=== PATIENT | female | born 1950 | race Two or more races ===

== ENCOUNTER 2024-05-24 20:49 | Emergency (ER) | payer MEDICARE, MEDICAID ==
[~2024-05-24] VITALS: Ht 167.6 cm; Wt 78.6 kg
--- NOTE | 2024-05-24 22:22 | DVH ---
CLINICAL INDICATION: PAIN S/P LEFT 5TH DIGIT SURG TECHNIQUE: 3 radiographic views of the left hand were obtained. Comparison: None FINDINGS/IMPRESSION: Status post open reduction internal fixation of the fracture of the proximal phalanx of the left 5th digit. The visualized joint space is well maintained. The alignment is anatomical. There is no radiopaque foreign body.
[2024-05-24 22:37] VITALS: BP 150/70; PULSE 77; RESP 20; TEMP 98.4; O2SAT 94
[2024-05-24] MEDS ORDERED: oxyCODONE HCL 5MG TAB PO PRN (23:00)
[2024-05-24] MEDS: oxyCODONE HCL 5MG TAB PO ONE (23:22)
--- NOTE | 2024-05-24 23:35 | ED.PDOC ---
Back pain HPI HPI Comments PRESENTS TO ED FOR LEFT HAND AND WRIST PAIN S/P LEFT FIFTH DIGIT SURGERY AT [facility] 05/19/24. HAND AND WRIST FEELS TIGHT. DENIES NUMBNESS, WEAKNESS OR KNOWN INJURY Chief Complaint: Upper Extremity Time Seen by MD: 21:00 Reviewed Notes: Nurses Notes, Medications, Allergies Allergies: Coded Allergies: Acetaminophen (Verified Allergy, Unknown, 05/24/24) Aspirin (Verified Allergy, Unknown, 05/24/24) Codeine (Verified Allergy, Unknown, 05/24/24) Hydrocodone (Verified Allergy, Unknown, 05/24/24) Ibuprofen (Verified Allergy, Unknown, 05/24/24) Naproxen (Verified Allergy, Unknown, 05/24/24) Sulfamethoxazole w/Trimethoprim (Verified Allergy, Unknown, 05/24/24) Uncoded Allergies: CIPROFIBRATE (Allergy, Unknown, 05/24/24) Information Source: Patient Mode of Arrival: Ambulatory Past Medical History PAST MEDICAL HISTORY: Denies Surgical History: Denies all surgeries PLASTER MIXER History: No Pertinent PLASTER MIXER History Family History Family History: Reviewed,noncontributory to illness Social History Smoker: Non-Smoker Alcohol: Denies ETOH Use Drugs: Denies Drug Use Constitutional: denies: chills, diaphoresis, fatigue, fever, malaise, sweats, weakness, others EENTM: denies: blurred vision, double vision, ear bleeding, ear discharge, ear drainage, ear pain, ear ringing, eye pain, eye redness, hearing loss, mouth pain, mouth swelling, nasal discharge, nose bleeding, nose congestion, nose pain, photophobia, tearing, throat pain, throat swelling, voice changes, others Respiratory: denies: cough, hemoptysis, orthopnea, SOB at rest, shortness of breath, SOB with excertion, stridor, wheezing, others Cardiovascular: denies: chest pain, dizzy spells, diaphoresis, Dyspnea on exertion, edema, irregular heart beat, left arm pain, lightheadedness, palpitations, PND, syncope, others Gastrointestinal: denies: abdomen distended, abdominal pain, blood streaked bowels, constipated, diarrhea, dysphagia, difficulty swallowing, hematemesis, melena, nausea, poor appetite, poor fluid intake, rectal bleeding, rectal pain, vomiting, others Genitourinary: denies: abnormal vagina bleeding, burning, dyspareunia, dysuria, flank pain, frequency, hematuria, incontinence, pain, , vagina discharge, urgency, others Neurological: denies: dizziness, fainting, headache, left sided numbness, left sided weakness, numbness, paresthesia, pre-existing deficit, right sided nu mbness, right sided weakness, seizure, speech problems, tingling, tremors, weakness, others Musculoskeletal: reports: others (LEFT THUMB PAIN); denies: back pain, gout, joint pain, joint swelling, muscle pain, muscle stiffness, neck pain Integumetry: denies: bruises, change in color, change in hair/nails, dryness, laceration, lesions, lumps, rash, wounds, others Allergic/Immunocompromised: denies: Difficulty Healing, Frequent Infections, Hives, Itching, others Hematologic/Lymphatic: denies: anemia, blood clots, easy bleeding, easy bruising, swollen glands, others Endocrine: denies: excessive hunger, excessive sweating, excessive thirst, excessive urination, flushing, intolerance to cold, intolerance to heat, unexplained weight gain, unexplained weight loss, others Psychiatric: denies: anxiety, bipolar disorder, depression, hopeless, panic disorder, schizophrenia, sleepless, suicidal, others Physical Exam General Appearance: No Apparent Distress, Normal HEENT: Pharynx Normal Neck: Full Range of Motion, Non-Tender Respiratory: Lungs Clear, No Respiratory Distress, Normal Breath Sounds Cardiovascular: No Murmur, Normal Peripheral Pulses, Regular Rate/Rhythm Breast Exam: Deferred Gastrointestinal: Non Tender, Soft Genitalia: Deferred Pelvic: Deferred Rectal: Deferred Extremities: Normal capillary refill, Normal inspection, Normal range of motion, Non-tender, No pedal edema Musculoskeletal : Location: Left Extremity Location: Hand (RETURN FIXATION DEVICE INTACT NO NOTED DRAINAGE OR SWELLING WITHOUT ERYTHEMA. LEFT THUMB TENDERNESS ON PALPATION TRACE EDEMA AND STRENGTH SENSORY MOTION INTACT) Apperance: Normal Neurologic: Alert, injection molding machine operator II-XII nml as Tested, No Motor Deficits, Normal Affect, Normal Mood, No Sensory Deficits Cerebellar Function: Normal Reflexes: Normal Skin: Dry, Normal Color, Warm Lymphatic: No Adenopathy Was a procedure done? Was a procedure done?: No Back Pain Differential Dx Differential Diagnosis: Fracture, Musculoskeletal Pain X-Ray, Labs, Meds, VS Vital Signs Date Time Temp Pulse Resp B/P (MAP) Pulse Ox O2 Delivery O2 Flow Rate FiO2 05/24/24 22:37 98.4 77 20 150/70 (96) 94 98.4 05/24/24 22:37 77 20 94 Room Air 05/24/24 21:00 98.4 70 16 132/83 (99) 95 Current Medications Medications (Trade) Dose Ordered Sig/Cara Route Start Time Stop Time Status Last Admin Oxycodone HCl 10 mg ONCE ONCE PO 05/24/24 23:15 05/24/24 23:18 DC 05/24/24 23:22 X-Ray, Labs, Meds, VS Comment X-RAY OF LEFT HAND AND THUMB SHOWS HARDWARE POST SURGICAL IN PLACE WITH NO NOTED DISLOCATIONS, OSSEOUS LESIONS OR FRACTURES. PATIENT IS SPLINT REMOVED RE DONE PATIENT TOLERATED WELL POSITIVE CIRCULATION SENSORY AND MOTION AFTER. LIKELY SECONDARY TO TIGHTNESS OF THE LAST SPLINT. GIVEN 10 MG OXYCODONE REPORTS IMPROVEMENT IN PAIN AND FUNCTION REQUESTING DISC HARGE AT THIS TIME. PATIENT STATES HAS A PRESCRIPTION AT HOME 5 MG 1-2 TABS NEEDED EVERY 6 HOURS. ADVISED TO CONTINUE THE PRESCRIPTION PRESCRIBED SIDE EFFECTS DISCUSSED NO ALCOHOL OR DRIVING WHILE ON MEDICATION. ADVISED TO CONTINUE TAKE A STOOL SOFTENER, INCREASE HER DAILY FIBER TO AVOID CONSTIPATION FOLLOW UP WITH THE SURGEON AND PCP IN 1-2 DAYS ER RETURN PRECAUTIONS GIVEN PATIENT INDICATES UNDERSTANDING. Time of 1ST Reevaluation: 23:35 Reevaluation 1ST: Improved Patient Education/Counseling: Diagnosis, Treatment, Prognosis, Need For Follow Up Family Education/Counseling: No Family Present Departure 1 Departure Time of Disposition: 23:35 Impression: Primary Impression: Pain in thumb joint with movement of left hand Disposition: 01 HOME / SELF CARE / HOMELESS Condition: Stable Discharged With: Friend Critical Care Note Critical Care Time?: No Stability Stability form required: NELLI Luna May 24, 2024 23:35
== END 2024-05-24 23:49 | disposition home or self-care (01) ==
LOC: ER 20:49
DX: M79.645 Pain in left finger(s) (principal); Z88.1 Allergy status to other antibiotic agents; Z88.2 Allergy status to sulfonamides; Z88.5 Allergy status to narcotic agent; Z88.6 Allergy status to analgesic agent; Z88.8 Allergy status to other drugs, medicaments and biological substances
CPT/HCPCS: 73130